=== PATIENT | male | born 1970 | race Caucasian/White ===

== ENCOUNTER → 2017-01-20 | Outpatient (CLI) | payer OTHER ==
[~2017-01-20] MED LIST: ALLEGRA PO; ALLEGRA180 MG PO; ALPRAZOLAM; ANUSOL-HC25 MG/SUPP RC; ATENOLOL25 MG PO; COZAAR100 MG PO; DOXYCYCLINE HY100 M1 PO; FIORICET1 TAB DOB; FIORINAL CAPSUL1 CAP PO; FLEXERIL10 MG PO; FLONASE 0.05% N16 G1 INH; FLUTICASONE; GUAIFENESIN-1 CAP.S3 PO; KETOPROFEN PO; LISINOPRIL10 MG PO; LORTAB 7.5-5001 TAB PO; LORTAB 7.51 TAB; LOSARTAN POTASS50 MG PO; MOBIC PO; NASONEX17 GM; NORVASC10 MG; PERCOCET 7.5-31 EACH PO; PHENERGAN25 M1 PO; PHENERGAN25 MG PO; PRILOSEC PO; TRAMADOL HCL50 M2 PO; ZYRTEC PO; [UNRECOGNIZED DRUG - REMARK] PO
--- NOTE | ~2017-01-20 | MR103 ---
[facility] A Service [facility] RADIOLOGY TEXT RESULTS PATIENT: KRISTINE SMITH [facility] [birth year] UNIT #: [id number] AGE: [address]: MANJEET BROUSSARD SEX: M ORDER DR: [id number] [facility] [address] [facility]. [place], [place] [address] [id number] O MR#: [id number] #: [id number] NAME: KRISTINE SMITH. : 1970 SEX: M STUDY DATE/TIME: 01/20/2017 7:15 UNIT: [facility] ROOM: STUDY DESCRIPTION: MR Knee Wo Contrast Lt Attending Physician: Manjeet Broussard M.D. Referring Physician: Manjeet Broussard M.D. Ordering Physician: Sharlene Not Listed Primary Care Physician: Savannah Gutiérrez M.D. MRI CENTER REPORT This report is preliminary unless electronic signature is present. EXAM Left knee MRI without contrast 01/20/2017 HISTORY 46-year-old male with left knee pain and swelling since surgery on left knee in May 2013. No specific injury since surgery. COMPARISON Left knee MRIs 04/27/2013 and 12/15/2013. Left knee x-rays 01/22/2016 and 01/16/2017. TECHNIQUE Routine unenhanced multiplanar, multisequence high field MR imaging of the left knee was performed. FINDINGS There are morphologic changes from prior partial medial meniscectomy. There is a suspected small recurrent undersurface tear of the posterior horn and posterior body segment of the medial meniscus. No displaced meniscal flaps are seen. There is partial extrusion of the body segment from the medial joint line. Lateral meniscus remains intact. Cruciate and collateral ligaments are intact. The extensor mechanism is intact. Small joint effusion. There is a popliteal cyst measuring approximately 7.7 cm in length. The articular cartilage of the patellofemoral joint is intact. Lateral compartment articular cartilage is intact. 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 There is reactive marrow edema in the anteromedial aspect of the medial femoral condyle and medial tibial [facility] A Service of [facility] RADIOLOGY TEXT RESULTS PATIENT: KRISTINE SMITH LOCATION: [facility] : 70 UNIT #: [id number] AGE: [address]: MANJEET BROUSSARD SEX: M ORDER DR: char which has progressed since the prior examination from 2013. Remainder the bone marrow signal is within expected limits. Visualized musculature is unremarkable. IMPRESSION 1. Morphologic changes from prior partial medial meniscectomy. There is a suspected small recurrent undersurface tear of the posterior horn and posterior body segment medial meniscus. Partial extrusion of the body segment from the medial joint line is unchanged from the prior exam. 2. 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 3. Small joint effusion. 7.7 cm popliteal cyst. Dictated by... Carlos Pereyra M.D. THIS IS AN ELECTRONICALLY VERIFIED REPORT Carlos Pereyra M.D. at 01/22/2017 4:39 PM DELLA/bryan TD: 01/20/2017 18:52 JOB #: [id number] MRI CENTER REPORT Page 1 of 1 COPY
== END | disposition home or self-care (01) ==
LOC: CMRI 06:51
DX: S83.242A Other tear of medial meniscus, current injury, left knee, initial encounter (principal); M94.262 Chondromalacia, left knee; M25.462 Effusion, left knee; M71.22 Synovial cyst of popliteal space [Baker], left knee
CPT/HCPCS: 73721